=== PATIENT | female | born 1975 | race Caucasian/White ===

== ENCOUNTER 2018-12-02 06:40 | Day surgery (SDC) | payer OTHER ==
[~2018-12-02] VITALS: Ht 170.2 cm; Wt 69.0 kg
[~2018-12-02 06:40] MED LIST: NAPR-58 PO; SODIUM CHLORIDE 0.9% 1,000 ML IV ONE
[2018-12-02] MEDS ORDERED: SODIUM CHLORIDE 0.9% 1,000 ML IV ONE (07:22)
[2018-12-02 08:09] VITALS: BP 99/67
[2018-12-02] MEDS ORDERED: BUPIVACAINE HCL/PF 0.75% 10 ML VIAL ONE (08:11)
[2018-12-02] MEDS ORDERED: LIDOCAINE/PF 2% 5 ML VIAL ONE (08:11)
[2018-12-02] MEDS ORDERED: TRIAMCINOLONE ACETONIDE 40 MG/ML VIAL ONE ×2 (08:11→09:16)
[2018-12-02] MEDS ORDERED: SODIUM BICARBONATE 50 MEQ/50 ML VIAL ONE (08:12)
[2018-12-02] MEDS ORDERED: LIDOCAINE/PF 1% 30 ML VIAL ONE (08:12)
[2018-12-02] MEDS ORDERED: FentaNYL CITRATE-PF 100 MCG/2 ML VIAL ONE (08:14)
[2018-12-02] MEDS ORDERED: MIDAZOLAM HCL 2 MG/2 ML VIAL ONE ×2 (08:14→09:07)
[2018-12-02] MEDS ORDERED: BUPIVACAINE HCL/PF 0.75% 10 ML VIAL IARTIC ONE (08:45)
[2018-12-02] MEDS ORDERED: LIDOCAINE 1% 30 ML/SOD BICARB 8.4% 4 ML SQ ONE (08:45)
[2018-12-02] MEDS ORDERED: FentaNYL CITRATE-PF 100 MCG/2 ML VIAL IVP ONE ×2 (08:45→09:15)
[2018-12-02] MEDS ORDERED: MIDAZOLAM HCL 2 MG/2 ML VIAL IVP ONE ×2 (08:45→09:15)
[2018-12-02] MEDS ORDERED: TRIAMCINOLONE ACETONIDE 40 MG/ML VIAL IARTIC ONE (08:45)
[2018-12-02] MEDS ORDERED: LIDOCAINE/PF 2% 5 ML VIAL IARTIC ONE (08:45)
[2018-12-02] MEDS ORDERED: FLUMAZENIL 0.1 MG/ML 5 ML VIAL IVP ONE (09:33)
[2018-12-02] MEDS ORDERED: NALOXONE HCL 0.4 MG/ML VIAL ONE (09:33)
[2018-12-02 10:07] VITALS: BP 100/71
== END 2018-12-02 11:00 | disposition home or self-care (01) ==
LOC: SDS 06:40
PROVIDERS: ATTEND Specialist
DX: M47.817 Spondylosis without myelopathy or radiculopathy, lumbosacral region (principal); Z98.890 Other specified postprocedural states; Z72.89 Other problems related to lifestyle
CPT/HCPCS: 64635; 64636; 84703; 99152; 99153; J2250; J3010; J3301; J3490 ×4; J7030; J2310

== ENCOUNTER 2019-01-20 05:59 | Day surgery (SDC) | payer OTHER ==
[~2019-01-20] VITALS: Ht 172.7 cm; Wt 68.6 kg
[~2019-01-20 05:59] MED LIST changes: +NAPR-1025 PO; -NAPR-58 PO
[2019-01-20] MEDS ORDERED: SODIUM CHLORIDE 0.9% 1,000 ML IV ONE (06:00)
[2019-01-20] MEDS ORDERED: LIDOCAINE/PF 2% 5 ML VIAL ONE ×2 (08:20→09:40)
[2019-01-20] MEDS ORDERED: TRIAMCINOLONE ACETONIDE 40 MG/ML VIAL ONE (08:20)
[2019-01-20] MEDS ORDERED: BUPIVACAINE HCL/PF 0.75% 10 ML VIAL ONE (08:20)
[2019-01-20] MEDS ORDERED: SODIUM BICARBONATE 50 MEQ/50 ML VIAL ONE (08:21)
[2019-01-20] MEDS ORDERED: LIDOCAINE/PF 1% 30 ML VIAL ONE (08:21)
[2019-01-20] MEDS ORDERED: FentaNYL CITRATE-PF 100 MCG/2 ML VIAL ONE (08:23)
[2019-01-20 08:24] VITALS: BP 114/75
[2019-01-20] MEDS ORDERED: MIDAZOLAM HCL 2 MG/2 ML VIAL ONE (08:24)
[2019-01-20] MEDS ORDERED: TRIAMCINOLONE ACETONIDE 40 MG/ML VIAL IARTIC ONE (08:45)
[2019-01-20] MEDS ORDERED: MIDAZOLAM HCL 2 MG/2 ML VIAL IVP ONE (08:45)
[2019-01-20] MEDS ORDERED: LIDOCAINE 1% 30 ML/SOD BICARB 8.4% 4 ML SQ ONE (08:45)
[2019-01-20] MEDS ORDERED: FentaNYL CITRATE-PF 100 MCG/2 ML VIAL IVP ONE (08:45)
[2019-01-20] MEDS ORDERED: LIDOCAINE/PF 2% 5 ML VIAL IARTIC ONE (08:45)
[2019-01-20] MEDS ORDERED: BUPIVACAINE HCL/PF 0.75% 10 ML VIAL IARTIC ONE (08:45)
[2019-01-20 09:54] VITALS: BP 148/61
== END 2019-01-20 11:20 | disposition home or self-care (01) ==
LOC: SDS 05:59
PROVIDERS: ATTEND Specialist
DX: M47.817 Spondylosis without myelopathy or radiculopathy, lumbosacral region (principal); M77.11 Lateral epicondylitis, right elbow; Z98.890 Other specified postprocedural states; Z72.89 Other problems related to lifestyle
CPT/HCPCS: 20551; 64635; 84703; 99152; 99153; J2250; J3010; J3301; J3490 ×4; J7030